=== PATIENT | female | born 1980 | race American Indian/Alaskan Native ===

== ENCOUNTER 2016-09-07 22:09 | Emergency (ER) | payer MEDICAID ==
[2016-09-07 22:30] VITALS: BP 116/74
[2016-09-07 22:58] LABS: Basophils % (Auto) 0.5 % (0.0-1.8); Eosinophils % (Auto) 4.2 % (0.0-4.3); Hematocrit 43.5 % (30.3-42.9); Hemoglobin 14.1 gm/dl (10.1-14.3); Mean Corpuscular HGB Conc 32 % (30-34); Mean Corpuscular Hemoglobin 29 pg (28-32); Mean Corpuscular Volume 91 fl (79-97); Platelet Count 361 K/mm3 (140-440); Red Blood Count 4.79 M/mm3 (3.65-5.03); Red Cell Distribution Width 13.2 % (13.2-15.2); White Blood Count 12.5 K/mm3 (4.5-11.0)
--- NOTE | 2016-09-08 06:13 | ED Elopement Review ---
ED Pt Elopement review - Results review Lab results: Laboratory Tests 09/07/16 09/07/16 09/07/16 22:34 22:34 22:34 WBC 12.5 H RBC 4.79 Hgb 14.1 Hct 43.5 H MCV 91 MCH 29 MCHC 32 RDW 13.2 Plt Count 361 Lymph % (Auto) 19.3 [place] % (Auto) 5.2 Eos % (Auto) 4.2 Baso % (Auto) 0.5 Lymph # 2.4 [place] # 0.7 Eos # 0.5 H Baso # 0.1 Seg Neutrophils % 70.8 H Seg Neutrophils # 8.9 H HCG, Quant 11874 H Blood Type O POSITIVE Antibody Screen Negative - Call Back decision Pt Call Back Decision: Pt to F/U with PMD (See [employer] or come to ER if have none. with bleeding, rule out miscarriage)
[2016-09-08 07:12] LABS: Bilirubin,Urine NEG (Negative); Blood,Urine MOD (Negative); Ketones,Urine NEG (Negative); Leukocyte Esterase,Urine TR (Negative); Mucus,Urine FEW /HPF; Nitrite,Urine NEG (Negative); Protein,Urine <15 mg/dL mg/dL (Negative); Urobilinogen,Urine < 2.0 mg/dL (<2.0)
== END 2016-09-08 02:28 | disposition left against medical advice (07) ==
LOC: ED 22:09
DX: O20.9 Hemorrhage in early pregnancy, unspecified (principal); Z88.0 Allergy status to penicillin; Z3A.08 8 weeks gestation of pregnancy; Z53.21 Procedure and treatment not carried out due to patient leaving prior to being seen by health care provider
CPT/HCPCS: 36415; 81001; 84702; 85025; 86850; 86900; 86901